=== PATIENT | female | born 1980 | race Two or more races ===

== ENCOUNTER 2019-11-01 22:26 | Emergency (ER) | payer BC ==
[~2019-11-01] VITALS: Ht 160 cm; Wt 56.8 kg
[2019-11-01 22:27] VITALS: BP 114/72
== END 2019-11-02 00:32 | disposition home or self-care (01) ==
LOC: M ED 22:26
DX: S09.90XA Unspecified injury of head, initial encounter (principal); S16.1XXA Strain of muscle, fascia and tendon at neck level, initial encounter; V98.8XXA Other specified transport accidents, initial encounter; Y92.838 Other recreation area as the place of occurrence of the external cause; Y93.89 Activity, other specified; Y99.8 Other external cause status